=== PATIENT | male | born 1975 | race Hispanic/Latino ===

== ENCOUNTER → 2018-12-14 | Day surgery (SDC) | payer OTHER ==
[~2018-12-14] MED LIST: FENTANYL CITRATE/PF 100MCG/2 ML INJ ONE; HYOSCYAMINE 0.125 MG TAB ONE; KETAMINE HCL INJ 50 MG/ML 10 ML VIAL ONE; MIDAZOLAM HCL 2 MG/2 ML VIAL ONE; PROPOFOL IV EMULSION 10 MG/ML 50 ML VIAL ONE
[2018-12-14 10:05] VITALS: BP 134/54
[2018-12-14 12:12] LABS: WBC,FECAL (FECAL LACTOFERRIN) NEGATIVE (NEGATIVE)
[2018-12-14 12:57] LABS: C DIFFICILE TOXIN A&B AMP PROB **POSITIVE** (NEGATIVE)
--- NOTE | 2018-12-14 16:28 | Operative Report ---
DATE OF PROCEDURE: 12/14/2018 SURGEON: Kostas Mason MD PROCEDURE: Colonoscopy with polypectomy. INDICATIONS FOR COLONOSCOPY: Bloody diarrhea. MEDICATIONS: The patient was done under MAC, please see anesthesiologist's note. PROCEDURE IN DETAIL: With the patient in left lateral decubitus position, a flexible fiberoptic Olympus colonoscope was inserted into the rectum with ease and advanced all the way to the cecum. A single diverticulum was noted in the cecum. The ileocecal valve was intubated and the scope was advanced into the terminal ileum. Biopsies were obtained. The scope was then withdrawn back into the colon. It was then withdrawn slowly and approximately 1 cm sessile polyp was noted in the proximal ascending colon that was removed per snare electrocautery. The rest of the ascending and the transverse grossly were unremarkable. There were some patchy mild inflammatory changes noted in the distal descending and the distal transverse as well as the left colon and the rectum. Random biopsies were obtained. Some diverticular disease was noted in the left colon, primarily in the sigmoid. Approximately 1.5 cm pedunculated polyp was removed per snare electrocautery from the sigmoid colon and polypectomy site was hemoclipped x2. Scope was retroflexed into the distal rectum and small internal hemorrhoids were noted, none of which was actively bleeding. The scope was then straightened out or subsequently withdrawn after securing an adequate stool specimen that was sent for the appropriate stool studies. The patient tolerated the procedure well. IMPRESSION: 1. Diverticulosis. 2. Approximately 1 cm polyp sessile proximal ascending colon removed per snare electrocautery. 3. Mild patchy left-sided colitis. 4. Approximately 1.5 cm pedunculated polyp, sigmoid colon removed per snare electrocautery and site hemoclipped x2. 5. Proctitis, mild. 6. Internal hemorrhoids, none actively bleeding. PLAN: Follow up histology. Follow up stool studies. Check IBD panel, CRP, and sedimentation rate. Timing of followup colonoscopy pending pathology report. MD POLA Boss/[place] /[id number]
== END | disposition home or self-care (01) ==
LOC: OR 05:55
PROVIDERS: ATTEND Internal Medicine Gastroenterology
DX: K51.50 Left sided colitis without complications (principal); D12.0 Benign neoplasm of cecum; D12.5 Benign neoplasm of sigmoid colon; K57.30 Diverticulosis of large intestine without perforation or abscess without bleeding; K62.89 Other specified diseases of anus and rectum; K64.8 Other hemorrhoids; R03.0 Elevated blood-pressure reading, without diagnosis of hypertension; F17.210 Nicotine dependence, cigarettes, uncomplicated; Z01.810 Encounter for preprocedural cardiovascular examination; Z68.34 Body mass index [BMI] 34.0-34.9, adult
CPT/HCPCS: 36415; 45380; 45385; 83630; 83993; 85651; 86140; 86256; 86671; 87045; 87177; 87328; 87493; 93005; J2250; J2704; J3010; 45378

== ENCOUNTER → 2019-08-18 | Day surgery (SDC) | payer OTHER ==
[~2019-08-18] MED LIST changes: -HYOSCYAMINE 0.125 MG TAB ONE; +LIDOCAINE HCL 2% LOCAL INJ 5 ML SDV VIAL INJ ONE; +PANTOPRAZOLE 40 MG 10ML VIAL ONE; +PROPOFOL IV EMULSION 10 MG/ML 20 ML VIAL ONE; -PROPOFOL IV EMULSION 10 MG/ML 50 ML VIAL ONE
[2019-08-18 10:35] VITALS: BP 120/91
--- NOTE | 2019-08-18 10:54 | Operative Report ---
DATE OF PROCEDURE: 08/18/2019 SURGEON: Kostas Mason MD PROCEDURE: EGD with biopsies. INDICATIONS FOR EGD: Upper abdominal pain. MEDICATIONS: The patient was done under MAC, please see anesthesiologist's note. PROCEDURE IN DETAIL: With the patient in the left lateral decubitus position, the flexible fiberoptic Olympus gastroscope was introduced into the esophagus under direct visualization without any difficulty. There was some patchy erythema noted in distal esophagus. The scope was then advanced with ease into the stomach. Mucosa overlying the antrum and the body revealed some patchy erythema and moderate edema, and biopsies were obtained and sent to stain for H. pylori. Pylorus was of normal contour and shape, was intubated with ease and the scope was advanced all the way to the second portion of the duodenum. The scope was then advanced with ease all the way to the second portion of the duodenum. Biopsies were obtained from the proximal second portion and the duodenal bulb. Several ulcers were noted in the duodenal bulb and the proximal second portion. The largest of which was approximately 6 mm with heaped up margin without active bleeding in the bulb. The scope was then withdrawn back into the stomach and retroflexed, mucosa overlying the fundus and the cardia appeared to be within normal limits. The scope was then straightened out, it was subsequently withdrawn, and the patient tolerated the procedure well. IMPRESSION: 1. Distal esophagitis, mild. 2. Gastritis, biopsied, biopsies sent to stain for Helicobacter pylori. 3. Multiple duodenal ulcers without active bleeding or stigmata of recent hemorrhage. PLAN: Follow up histology. Initiate Protonix 40 mg one p.o. q.a.m. before meals and Carafate 1 g p.o. before meals t.i.d. and at bedtime. Kostas Mason MD [facility] [place] /[id number]
== END | disposition home or self-care (01) ==
LOC: OR 08:05
PROVIDERS: ATTEND Internal Medicine Gastroenterology
DX: K29.70 Gastritis, unspecified, without bleeding (principal); K20.9 Esophagitis, unspecified; K26.9 Duodenal ulcer, unspecified as acute or chronic, without hemorrhage or perforation; F41.9 Anxiety disorder, unspecified; R03.0 Elevated blood-pressure reading, without diagnosis of hypertension; F17.210 Nicotine dependence, cigarettes, uncomplicated; F10.10 Alcohol abuse, uncomplicated; Z01.810 Encounter for preprocedural cardiovascular examination; Z01.812 Encounter for preprocedural laboratory examination; Z68.33 Body mass index [BMI] 33.0-33.9, adult
CPT/HCPCS: 43239; 87635; 93005; C9113; J2001; J2250; J2704; J3010